=== PATIENT | male | born 1950 | race Caucasian/White ===

== ENCOUNTER 2019-08-12 11:23 | Inpatient (IN) | payer OTHER, MEDICARE ==
[~2019-08-12] VITALS: Ht 182.9 cm; Wt 132.6 kg
[2019-08-12 11:52] LABS: BASOPHILS ABSOLUTE AUTO 0.05 K/mm3 (0.00-0.23); BASOPHILS PERCENT AUTO 1 % (0-2); EOSINOPHILS ABSOLUTE AUTO 0.14 K/mm3 (0.00-0.68); EOSINOPHILS PERCENT AUTO 1 % (0-6); Hematocrit 50.5 % (37.0-53.0); Hemoglobin 16.7 g/dL (13.5-17.5); IMMATURE GRAN ABSOLUTE AUTO 0.02 K/mm3 (0.00-0.10); IMMATURE GRAN PERCENT AUTO 0 % (0-1); LYMPHOCYTES ABSOLUTE AUTO 2.69 K/mm3 (0.84-5.20); LYMPHOCYTES PERCENT AUTO 27 % (21-46); MONOCYTES ABSOLUTE AUTO 0.88 K/mm3 (0.16-1.47); MONOCYTES PERCENT AUTO 9 % (4-13); Mean Corpuscular HGB 31.6 pg (26.0-34.0); Mean Corpuscular HGB Conc 33.1 g/dL (31.5-36.5); Mean Corpuscular Volume 96 fL (80-100); Mean Platelet Volume 11.7 fL (9.1-12.4); NEUTROPHILS ABSOLUTE AUTO 6.27 K/mm3 (1.96-9.15); NEUTROPHILS PERCENT AUTO 62 % (41-73); Platelet Count 191 K/mm3 (150-400); RDW Coefficient Variation 13.7 % (11.7-14.2); RDW Standard Deviation 48.6 fL (35.1-46.3); Red Blood Cell Count 5.28 M/mm3 (4.30-5.90); White Blood Cell Count 10.05 K/mm3 (4.00-11.30)
[2019-08-12] MEDS ORDERED: Ventolin/Prove6.7 GM INH (12:02)
[2019-08-12] MEDS ORDERED: FINA5 PO (12:03)
[2019-08-12] MEDS ORDERED: Norvasc10 MG PO (12:03)
[2019-08-12] MEDS ORDERED: ATOR10 PO (12:03)
[2019-08-12] MEDS ORDERED: GABA600 PO (12:03)
[2019-08-12] MEDS ORDERED: OMEPRAZOLE20 MG PO (12:04)
[2019-08-12] MEDS ORDERED: STRIVERDI RESPIM4 GM PO (12:04)
[2019-08-12] MEDS ORDERED: VALS80 PO (12:04)
[2019-08-12] MEDS ORDERED: Glucophage Xr750 MG PO (12:04)
[2019-08-12 12:15] LABS: International Normalized Ratio 1.11; Prothrombin Time Results 11.7 Sec (9.7-11.5)
[2019-08-12 12:16] LABS: Alanine Aminotransfer (ALT/SGP 48 U/L (12-78); Albumin, Blood 3.9 g/dL (3.4-5.0); Albumin/Globulin Ratio 1.1 (0.8-1.8); Alk Phos 77 U/L (50-136); Anion Gap 8 mmol/L (6-16); Aspartate Aminotrans (AST/SGOT 27 U/L (12-37); Bilirubin, Total 0.5 mg/dL (0.1-1.0); Blood Urea Nitrogen 26 mg/dL (8-24); Bun/Creatinine Ratio 38.1 (12.0-20.0); CO2, Blood 24 mmol/L (21-32); Calcium, Blood 8.8 mg/dL (8.5-10.1); Chloride, Blood 112 mmol/L (98-108); Creatinine, Blood 0.68 mg/dL (0.60-1.20); Free Thyroxine 1.01 ng/dL (0.70-1.60); Globulin, Blood 3.5 g/dL (2.2-4.0); Glomerular Filtration Rate >60 (60-); Glucose, Blood 106 mg/dL (70-99); Magnesium, Blood 2.2 mg/dL (1.6-2.4); Potassium, Blood 4.2 mmol/L (3.5-5.5); Sodium, Blood 144 mmol/L (136-145); Total Protein, Blood 7.4 g/dL (6.4-8.2); Troponin I <0.015 ng/mL (0.000-0.040)
[2019-08-12] MEDS ORDERED: STIOLTO RESPIMAT4 GM INH (13:53)
--- NOTE | 2019-08-12 14:21 | NUR ---
Echocardiogram completed.
--- NOTE | 2019-08-12 16:14 | NUR ---
ADMISSION: PT RECEIVED FROM ED 1510 AND SETTLED INTO ICU RM 3. QUICK ADMIT DONE AND LEVAQUIN STARTED PER ORDER. [facility] CAME AND TRANSPORTED PT FOR PERMANENT PACEMAKER PLACEMENT.
--- NOTE | 2019-08-12 18:25 | NUR ---
PAIN UPDATE: TYLENOL 65. MG GIVEN FOR PT REPORT OF DISCOMFORT IN R ANKLE. PT REPORTS PAIN WITH REPOSITIONING BUT RESOLVES SOME WITH REST.
--- NOTE | 2019-08-12 19:09 | NUR ---
PT TO ICU 3 FROM [facility] POST DUAL CHAMBER PACEMAKER IMPLANT. PT IS ALERT AND ORIENTED X 3, SMILING AND CONVERSATIONAL AT THIS TIME. HE RATES HIS PAIN 1/10, DENIES CP/PRESSURE, DENIES SOB/DYSPNEA, DENIES N/V. 100% PACED ON MONITOR AT THIS TIME, RATE 60S ON ARRIVAL, SKIN IS PWD, PER SPOUSE, PT'S COLOR IS GREATLY IMPROVED FROM "THE LAST 2 WEEKS AT LEAST" PT STATES THAT HE IS FEELING MUCH IMPROVED. LUNGS ARE CLEAR THROUGHOUT WITH DIM BASES BILAT AT THIS TIME, NO INCREASED WORK OF BREATHING IS NOTED, SATS ARE MID 90S ON ROOM AIR, RATE MID TEENS. ABD DISTENDED, ACTIVE BOWEL TONES X 4, NO GRIMACING OR COMPLAINTS OF TENDERNESS WITH LIGHT PALPATION, PT COMPLAINS OF FEELING HUNGRY. IV ACCESS NOTED BILAT 18 GAUGE SALINE LOCKS, SEE VASCULAR ACCESS DOCUMENTATION. DRESSING NOTED CDI TO LEFT UPPER CHEST. WILL MONITOR.
--- NOTE | 2019-08-12 21:25 | NUR ---
DR NARANJO PROCEDURE NOTE IS NOTED TO STATE THAT PT IS TRANSFERRED TO PCU, DISCUSSED NOTE WITH CEFERINO LIVINGSTON, HOSPITALIST DRILLING MANAGER, TRANSFER ORDERS RECEIVED.
[2019-08-12 22:11] LABS: Source, Urine Clean Catch
[2019-08-12 22:13] LABS: Bilirubin, Urine Neg (Neg); Blood, Urine Neg (Neg); Glucose Qualitative, Urine Neg (Neg); Ketones, Urine Neg (Neg); Leukocyte Esterase, Urine Neg (Neg); Nitrite, Urine Neg (Neg); Protein, Urine 3+ (Neg); Urobilinogen, Urine NORM (Normal); pH, Urine 6.5 (5.0-8.0)
[2019-08-12 22:20] LABS: Appearance, Urine Clear (Clear); Color, Urine Yellow (P-Yellow); White Blood Cells, Urine Rare /hpf (0-5)
[2019-08-12 22:21] LABS: Bacteria Not Seen /hpf; Red Blood Cells, Urine Not Seen /hpf (0-2); Squamous Epithelial Cells Not Seen /hpf (Few)
--- NOTE | 2019-08-12 23:30 | NUR ---
ASSESSMENT/ASSUMED CARE ASSUMED CARE OF PT, RECEIVED REPORT FROM RADHAMES AT BEDSIDE. PT AWAKE SITTING UP IN BED WITH CPAP ON READING. PT STATES"I'M A LITTLE SORE AT THE SITE BUT NOT BAD". PT REFUSED PAIN MED OR ICE PACK TO SITE. LUNGS CLEAR BUT DECRASED. HEART RATE REGULAR 100% PACE. BP ELEVATED. SCD'S ON. BT+ ABD ROUND AND NONTENDER. LEFT UPPER CHEST WITH DRSG INTACT. LEFT ARM IN SLING. REMINDED PT TO NOT USE LEFT ARM. IV TO RIGHT FOREARM AND LEFT AC SALINE LOCKED. PT MOVING SELF AROUND IN BED. WILL CALL MD REGARDING HTN
[2019-08-13 00:09] LABS: Adenovirus Not Detected (NOT DETECT); Bordetella pertussis Not Detected (NOT DETECT); Chlamydophila pneumoniae Not Detected (NOT DETECT); Coronavirus 229E Not Detected (NOT DETECT); Coronavirus HKU1 Not Detected (NOT DETECT); Coronavirus NL63 Not Detected (NOT DETECT); Coronavirus OC43 Not Detected (NOT DETECT); Human Metapneumovirus Not Detected (NOT DETECT); Human Rhinovirus/Enterovirus Not Detected (NOT DETECT); Influenza A Not Detected (NOT DETECT); Influenza A/2009-H1 Not Detected (NOT DETECT); Influenza A/H1 Not Detected (NOT DETECT); Influenza A/H3 Not Detected (NOT DETECT); Influenza B Not Detected (NOT DETECT); Mycoplasma pneumoniae Not Detected (NOT DETECT); Parainfluenza Virus 1 Not Detected (NOT DETECT); Parainfluenza Virus 2 Not Detected (NOT DETECT); Parainfluenza Virus 3 Not Detected (NOT DETECT); Parainfluenza Virus 4 Not Detected (NOT DETECT); Respiratory Syncytial Virus Not Detected (NOT DETECT)
--- NOTE | 2019-08-13 00:15 | NUR ---
HTN CALL TO DR PERDOMO REGARDING HTN AFTER RECEIVING HYDRALAZINE. RECEIVED ORDERS FOR ADDITIONAL DOSE HYDRALAZINE 10MG NOW. ALSO RESTART HOME MEDS NORVASC AND DIOVAN (LOSARTAN) WITH FIRST DOSE NOW.
--- NOTE | 2019-08-13 00:35 | NUR ---
HTN PT MED WITH HYDRALAZINE 10 MG FOR HTN. GIVEN NORVASC AND LOSARTAN FIRST DOSE NOW (HOME MEDS). DUE TO SBP IN THE 190'S. IV ANTIBIOTIC STARTED.
[2019-08-13 04:22] LABS: Hematocrit 50.9 % (37.0-53.0); Mean Corpuscular HGB 31.8 pg (26.0-34.0); Mean Corpuscular HGB Conc 33.4 g/dL (31.5-36.5); Mean Corpuscular Volume 95 fL (80-100); Mean Platelet Volume 11.6 fL (9.1-12.4); Platelet Count 187 K/mm3 (150-400); RDW Coefficient Variation 13.3 % (11.7-14.2); RDW Standard Deviation 47.4 fL (35.1-46.3); Red Blood Cell Count 5.34 M/mm3 (4.30-5.90); White Blood Cell Count 11.97 K/mm3 (4.00-11.30)
[2019-08-13 04:42] LABS: Alanine Aminotransfer (ALT/SGP 41 U/L (12-78); Albumin, Blood 3.8 g/dL (3.4-5.0); Alk Phos 81 U/L (50-136); Anion Gap 8 mmol/L (6-16); Aspartate Aminotrans (AST/SGOT 24 U/L (12-37); Bilirubin, Total 0.6 mg/dL (0.1-1.0); Blood Urea Nitrogen 24 mg/dL (8-24); Bun/Creatinine Ratio 36.4 (12.0-20.0); CO2, Blood 23 mmol/L (21-32); Calcium, Blood 8.9 mg/dL (8.5-10.1); Chloride, Blood 113 mmol/L (98-108); Creatinine, Blood 0.66 mg/dL (0.60-1.20); Globulin, Blood 3.7 g/dL (2.2-4.0); Glomerular Filtration Rate >60 (60-); Glucose, Blood 208 mg/dL (70-99); Sodium, Blood 144 mmol/L (136-145); Total Protein, Blood 7.5 g/dL (6.4-8.2)
--- NOTE | 2019-08-13 05:53 | NUR ---
SHIFT SUMMARY PT RESTING QUIETLY WITH HOME CPAP ON. REPORTS 1/10 PAIN DURING THE NIGHT TO INCISION SITE ON LEFT CHEST. REFUSING PAIN MEDICATION. LEFT ARM IN SLING. DRSG TO LEFT CHEST INTACT. PT UP TO BEDSIDE WITH ASSIST TO VOID. HTN- PT MED WITH HYDRALAZINE TWICE AND RESTARTED ON HOME BP MEDS. REPORT TO ON COMING NURSE
--- NOTE | 2019-08-13 12:30 | NUR ---
JANA NARANJO PT OK TO DISCHARGE LONG CHEST XRAY IS OK. WILL FOLLOW UP WITH DR. DAMON RE: DISCHARGE
--- NOTE | 2019-08-13 16:02 | NUR ---
PT HAD PERMAMENT PACEMAKER PLACED 08/12/19 IN THE EVENING. 100% PACED. PT TOLERATED PROCEDURE WELL. BP HAS BEEN ELEVATED THROUGHOUT SHIFT. AM MEDS GIVEN HOWEVER DID NOT LOWER BP. PRN HYDRALAZINE GIVEN, BP NOT LOWERED. OBTAINED ORDER FROM DR. DAMON FOR ADDITIONAL BP MEDS. MARISOL ORDERED 50MG PO METOPROLOL AND A ONE-TIME DOSE OF 60MG IV LASIX. CURRENT BP IS 169/90. DISCUSSED WITH PROVIDER AND PT/FAMILY THE NEED FOR PT TO STAY ANOTHER NIGHT AND GET BP UNDER CONTROL. PT/FAMILY AGREED TO STAY FOR BP MANAGEMENT IF NEEDED. PT UP TO BATHROOM WITH 1 PERSON STAND BY ASSIST MULTIPLE TIMES VOIDING UNMEASURED AMOUNTS.
--- NOTE | 2019-08-13 17:32 | NUR ---
REPORT GIVEN TO NURSE PCU RM 13. I&O RECORDED HOWEVER PT HAD 4-5 UNMEASURED VOIDS. BP HAS IMPROVED, CURRENT BP 158/88.
--- NOTE | 2019-08-13 17:57 | NUR ---
PT ARRIVAL. PT ARRIVED ON UNIT VIA W/C. PT IS A&Ox4 AND SBA/IND IN THE ROOM. DRESSING TO THE PT'S LEFT CHEST WALL HAS SMALL AMOUNT OF DRY S/S DRAINAGE. NO HEMATOMA NOTED. PT IS HYPERTENSIVE WITH BP OF 188/113. PT DENIES ANY CHEST PAIN/PRESSURE, N/V OR INCREASED SOB. PT IS 100% PACED PER PROPERTY INSURANCE AGENT. WILL CONTINUE TO MONITOR.
--- NOTE | 2019-08-14 06:17 | NUR ---
SHIFT SUMMARY PT SLEEPING IN ROOM COMFORTABLY AT THIS TIME. NO ACUTE CHANGES IN STATSU T.O NIGHT. PT BP STABILIZED AND REMAINED WNL NORMAL RANGER FOR PT. DENIED CP OR SB T/O NIGHT. PT WAS INDEPENDENT IN ROOM AND USED HOME CPAP T/O NGHT. RESP EVEN UNLABORED ON CPAP W/ SATS >92%. PT DENIED ANY NEEDS. USES CALL LIGHT APPROPRIATELY. CALL LIGHT IN REACH.
[2019-08-14] MEDS ORDERED: LOSARTAN POTAS100 MG PO (10:58)
[2019-08-14] MEDS ORDERED: Lopressor 50 mg50 MG PO (10:59)
[2019-08-14] MEDS ORDERED: FURO20 PO (11:00)
[2019-08-14] MEDS ORDERED: LEVO750 PO (11:00)
[2019-08-14] MEDS ORDERED: Vsl#3 Capsule1 EACH PO (11:01)
--- NOTE | 2019-08-14 12:10 | NUR ---
DISCHARGE NOTE LEFT CHEST SOFT, NO BLEED OR HEMATOMA, OPSITE DRSG CDI. PT STABLE FOR DISCHARGE. IV X2 REMOVED. DISCHARGE INSTRUCTIONS, POST PACEMAKER INSTRUCTIONS AND DISCHARGE MEDICATIONS REVIEWED WITH PT AND SPOUSE. PT AND SPOUSE VERBALIZE UNDERSTANDING AND DENY QUESTIONS. PT DISCHARGED VIA WHEELCHAIR TO WAITING CAR WITH BELONGINGS.
== END 2019-08-14 11:40 | disposition home or self-care (01) | DRG 242 ==
LOC: ER 11:23 → ICUW 13:40 → ICUE 13:40 → ER 14:43 → ICUE 14:45 → PCU 08-13 17:52
PROVIDERS: Emergency Medicine; ADMIT Internal Medicine
PROC: 0JH606Z Insertion of Pacemaker, Dual Chamber into Chest Subcutaneous Tissue and Fascia, Open Approach (ICD-10-PCS; principal; 2019-08-12)
PROC: 02H63JZ Insertion of Pacemaker Lead into Right Atrium, Percutaneous Approach (ICD-10-PCS; 2019-08-12)
PROC: 3E0102A Introduction of Anti-Infective Envelope into Subcutaneous Tissue, Open Approach (ICD-10-PCS; 2019-08-12)
DX: I44.2 Atrioventricular block, complete (principal); J96.01 Acute respiratory failure with hypoxia; J18.1 Lobar pneumonia, unspecified organism; I50.31 Acute diastolic (congestive) heart failure; J44.1 Chronic obstructive pulmonary disease with (acute) exacerbation; J44.0 Chronic obstructive pulmonary disease with (acute) lower respiratory infection; J44.9 Chronic obstructive pulmonary disease, unspecified; E78.5 Hyperlipidemia, unspecified; I11.0 Hypertensive heart disease with heart failure
CPT/HCPCS: 0099U; 33208; 36415; 71045; 71046; 80053; 81001; 82947; 83735; 83880; 84439; 84443; 84484; 85025; 85027; 85610; 87040; 87070; 87205; 93005; 93010; 93306; 94640; 94660; 94760; 99152; 99153; 99285-25; C1769; C1785; C1898; J0360; J0690; J1644; J1650; J1940; J1956; J2250; J2930; J3010; J7040

== ENCOUNTER 2021-05-21 13:01 | Day surgery (SDC) | payer OTHER ==
[~2021-05-21] VITALS: Ht 182.9 cm; Wt 119.0 kg
[~2021-05-21 13:01] MED LIST: ALBU90OI INH; AMLO10 PO; ATOR10 PO; ATOR20 PO; Aspirin EC81 MG PO; FINA5 PO; FURO20 PO; GABA600 PO; Glucophage Xr750 MG PO; LEVO750 PO; LOSARTAN POTAS100 M1 PO; LOSARTAN POTAS100 MG PO; Lopressor 50 mg50 MG PO; Norvasc10 MG PO; OMEP20ER PO; OMEPRAZOLE20 MG PO; STIOLTO RESPIMAT4 G1 INH; STIOLTO RESPIMAT4 GM INH; STRIVERDI RESPIM4 GM PO; VALS80 PO; Ventolin/Prove6.7 GM INH; Vsl#3 Capsule1 EACH PO
[2021-05-21] MEDS ORDERED: METF500 (13:27)
--- NOTE | 2021-05-21 13:30 | NUR ---
05/21/21 1330 SMILEY NARVAEZ PT BOWEL PREP SUTABS
--- NOTE | 2021-05-21 14:19 | NUR ---
05/21/21 1419 Shadia Hayes 5ML NORMAL SALINE USED TO ELEVATE TRANSVERSE COLON POLYP
== END 2021-05-21 14:55 | disposition home or self-care (01) ==
LOC: ORSCSDS 13:01
PROVIDERS: Internal Medicine Gastroenterology
PROC: 0DBL8ZX Excision of Transverse Colon, Via Natural or Artificial Opening Endoscopic, Diagnostic (ICD-10-PCS; principal; 2021-05-21 14:15)
PROC: 0DBM8ZX Excision of Descending Colon, Via Natural or Artificial Opening Endoscopic, Diagnostic (ICD-10-PCS; principal; 2021-05-21 14:15)
PROC: 0DBH8ZX Excision of Cecum, Via Natural or Artificial Opening Endoscopic, Diagnostic (ICD-10-PCS; principal; 2021-05-21 14:15)
PROC: 0DBK8ZX Excision of Ascending Colon, Via Natural or Artificial Opening Endoscopic, Diagnostic (ICD-10-PCS; principal; 2021-05-21 14:15)
PROC: 0DBN8ZX Excision of Sigmoid Colon, Via Natural or Artificial Opening Endoscopic, Diagnostic (ICD-10-PCS; principal; 2021-05-21 14:15)
DX: Z12.11 Encounter for screening for malignant neoplasm of colon (principal); Z86.010 Personal history of colon polyps; D12.4 Benign neoplasm of descending colon; D12.3 Benign neoplasm of transverse colon; D12.0 Benign neoplasm of cecum; D12.2 Benign neoplasm of ascending colon; D12.5 Benign neoplasm of sigmoid colon; K64.1 Second degree hemorrhoids; A63.0 Anogenital (venereal) warts; K57.30 Diverticulosis of large intestine without perforation or abscess without bleeding; F17.210 Nicotine dependence, cigarettes, uncomplicated; J44.9 Chronic obstructive pulmonary disease, unspecified; I10 Essential (primary) hypertension; Z95.0 Presence of cardiac pacemaker; G62.9 Polyneuropathy, unspecified; G47.33 Obstructive sleep apnea (adult) (pediatric); Z79.899 Other long term (current) drug therapy; E66.01 Morbid (severe) obesity due to excess calories; Z68.37 Body mass index [BMI] 37.0-37.9, adult
CPT/HCPCS: 82947; 88305; J2704; J7120